=== PATIENT | male | born 1965 | race Caucasian/White ===

== ENCOUNTER 2017-09-14 07:31 | Emergency (ER) | payer BC ==
[~2017-09-14] VITALS: Ht 182.9 cm; Wt 102.7 kg
[~2017-09-14 07:31] MED LIST: CITRATE OF MAG296 ML PO; FLEXERIL10 MG PO; MIRALAX17 GM PO; NAPROSYN500 MG PO; SERTRALINE HCL100 MG PO; VICODIN 5-3001 EACH PO; ZOLPIDEM TART12.5 MG PO
[2017-09-14 08:32] LABS: HEMATOCRIT 46.4 % (38.0-50.0); MCH 30.1 PG (29.0-34.0); MCHC 34.9 G/DL (30.0-36.0); MCV 86.2 FL (86-99); PLATELET COUNT 176 K/uL (156-360); RBC DIS.WIDTH-CV 13.2 % (11.8-14.6); RBC DIS.WIDTH-SD 41.4 % (39-53); RED BLOOD COUNT 5.38 M/uL (4.00-5.50); WHITE BLOOD COUNT 5.5 K/uL (4.1-10.2)
[2017-09-14 08:42] LABS: CHLORIDE 107 mEq/L (99-109); POTASSIUM 4.2 mEq/L (3.7-5.4); SODIUM 142 mEq/L (136-147)
[2017-09-14 08:44] LABS: GLUCOSE 106 mg/dL (70-99)
[2017-09-14 08:45] LABS: ANION GAP 11 MEQ/L (2-14)
[2017-09-14 08:48] LABS: GFR ESTIMATE (CALCULATED) > 59 mL/min/
[2017-09-14 08:49] LABS: UREA NITROGEN (BUN) 15 mg/dL (9-23)
[2017-09-14 08:54] LABS: TROP-I INTERPRETATION NEGATIVE; TROPONIN-I < 0.01 ng/mL (0.0-0.30)
[2017-09-14 11:42] LABS: TROP-I INTERPRETATION NEGATIVE; TROPONIN-I < 0.01 ng/mL (0.0-0.30)
[2017-09-14 12:02] VITALS: BP 140/79
== END 2017-09-14 12:07 | disposition home or self-care (01) ==
LOC: EME 07:31
PROVIDERS: Nurse Practitioner Family
DX: R07.9 Chest pain, unspecified (principal); F41.9 Anxiety disorder, unspecified; F32.9 Major depressive disorder, single episode, unspecified
CPT/HCPCS: 71020; 80048; 84484; 85027; 93005; 99281; 99284